=== PATIENT | female | born 1955 | race Caucasian/White ===

== ENCOUNTER 2016-12-24 14:48 | Emergency (ER) | payer OTHER ==
[~2016-12-24] VITALS: Ht 160 cm; Wt 50.0 kg
[~2016-12-24 14:48] MED LIST: ASPI81TA82 PO; ATOR20TA42 PO; LISI-363 PO; TYLE500T PO
[2016-12-24 14:52] VITALS: BP 108/57; PULSE 74; RESP 16; TEMP 98.2; O2SAT 97
[2016-12-24] MEDS ORDERED: SODIUM CHLOR 0.9% 1000 ML INJ 1,000 ML IV SCH (15:03)
[2016-12-24] MEDS ORDERED: SODIUM CHLOR 0.9% 1000 ML INJ 1,000 ML IV ONE (15:03)
--- NOTE | 2016-12-24 15:09 | PD ---
HPI Chief Complaint: GI Complaint Time Seen by Provider: 14:55 Travel History International Travel<30 days: No Contact w/Intl Traveler<30days: No Traveled to known affect area: No History of Present Illness HPI 61-year-old female presents for evaluation of diarrhea. Symptoms started 1 week ago. She reports several episodes of watery nonbloody stools on a daily basis. She took some Imodium 2 days ago which seemed to help decrease the diarrhea yesterday but today it has persisted which prompted evaluation. She endorses occasional epigastric discomfort which she relates is secondary to her GERD. She denies any other new abdominal pain. She endorses occasional nausea. Denies vomiting, fevers or chills, dysuria, recent antibiotic use. History of diverticulosis and diverticulitis episodes in the past, she denies any or quadrant abdominal pain. She primarily came in today because she felt like she might be getting dehydrated. She has been having some lightheadedness. She has been drinking [id number] Pedialyte. Her primary care physician is Dr. Campbell. No other complaints. PFSH Past Medical History Anxiety: No Depression: No Cancer: No Cardiovascular Problems: Yes High Cholesterol: Yes Diabetes: No Diminished Hearing: No Diverticulitis: Yes Endocrine: Yes Gastrointestinal Disorders: Yes (DIVERTICULITIS) GERD: Yes Genitourinary: No Hiatal Hernia: Yes Hypertension: Yes Immune Disorder: No Implanted Vascular Access Dvce: No Musculoskeletal: No Neurologic: No Psychiatric: No Reproductive: No Respiratory: No Thyroid Disease: Yes (L THYROIDECTOMY) : 1 Para: 1 Past Surgical History Abdominal Surgery: Yes (GALLBLADDER) Cholecystectomy: Yes Endocrine Surgery: Yes (THYROID TUMOR REMOVED) Gynecologic Surgery: Yes (HYSTERECTOMY) Hysterectomy: Yes Other Surgery: Yes Social History Alcohol Use: Yes (3 DRINKS PER DAY) Tobacco Use: Yes (1/2 ppd) Substance Use: No Allergies-Medications (Allergen,Severity, Reaction): Coded Allergies: Contrast Media (Verified Allergy, Severe, hives, 04/16/16) Codeine (Verified Adverse Reaction, Mild, NAUSEA & VOMITING, 04/16/16) Reported Meds & Prescriptions Reported Meds & Active Scripts Active Lomotil (Diphenoxylate-Atropine) 2.5-0.025 Mg Tab 2 Tab PO Q6H PRN Acetaminophen 500 Mg Tab 500 Mg PO Q6HR PRN Reported Lisinopril 20 mg (Lisinopril) 20 Mg Tab 1 Tab PO DAILY Aspir-81 (Aspirin) 81 Mg Tab 81 Mg PO DAILY Lipitor (Atorvastatin Calcium) 20 Mg Tab 20 Mg PO HS Review of Systems Except as stated in HPI: all other systems reviewed are Neg Physical Exam Narrative GENERAL: Well-developed well-nourished female in no acute distress SKIN: Warm and dry. HEAD: Atraumatic. Normocephalic. EYES: Pupils equal and round. No scleral icterus. No injection or drainage. ENT: No nasal bleeding or discharge. Mucous membranes pink and moist. NECK: Trachea midline. No JVD. CARDIOVASCULAR: Regular rate and rhythm. No murmur appreciated. RESPIRATORY: No accessory muscle use. Clear to auscultation. Breath sounds equal bilaterally. GASTROINTESTINAL: Abdomen soft, non-tender, nondistended. Hepatic and splenic margins not palpable. MUSCULOSKELETAL: No obvious deformities. No edema NEUROLOGICAL: Awake and alert. No obvious cranial nerve deficits. Motor grossly within normal limits. Normal speech. Data Data Last Documented VS Vital Signs Date Time Temp Pulse Resp B/P Pulse Ox O2 Delivery O2 Flow Rate FiO2 12/24/16 15:00 18 12/24/16 14:52 98.2 74 108/57 97 Orders Complete Blood Count With Diff (12/24/16 15:03) Comprehensive Metabolic Panel (12/24/16 15:03) Ondansetron Inj (Zofran Inj) (12/24/16 15:15) Sodium Chlor 0.9% 1000 Ml Inj (Ns 1000 M (12/24/16 15:03) Sodium Chlor 0.9% 1000 Ml Inj (Ns 1000 M (12/24/16 15:03) Magnesium (Mg) (12/24/16 15:03) Labs Laboratory Tests Test 12/24/16 13:14 White Blood Count 7.8 TH/MM3 Red Blood Count 4.17 MIL/MM3 Hemoglobin 13.8 GM/DL Hematocrit 41.4 % Mean Corpuscular Volume 99.3 FL Mean Corpuscular Hemoglobin 33.1 PG Mean Corpuscular Hemoglobin 33.3 % Concent Red Cell Distribution Width 13.4 % Platelet Count 157 TH/MM3 Mean Platelet Volume 10.0 FL Neutrophils (%) (Auto) 72.6 % Lymphocytes (%) (Auto) 13.1 % Monocytes (%) (Auto) 11.9 % Eosinophils (%) (Auto) 2.3 % Basophils (%) (Auto) 0.1 % Neutrophils # (Auto) 5.7 TH/MM3 Lymphocytes # (Auto) 1.0 TH/MM3 Monocytes # (Auto) 0.9 TH/MM3 Eosinophils # (Auto) 0.2 TH/MM3 Basophils # (Auto) 0.0 TH/MM3 CBC Comment DIFF FINAL Differential Comment Sodium Level 133 MEQ/L Potassium Level 3.8 MEQ/L Chloride Level 103 MEQ/L Carbon Dioxide Level 20.2 MEQ/L Anion Gap 10 MEQ/L Blood Urea Nitrogen 33 MG/DL Creatinine 0.94 MG/DL Estimat Glomerular Filtration 60 ML/MIN Rate Random Glucose 87 MG/DL Calcium Level 9.5 MG/DL Magnesium Level 2.1 MG/DL Total Bilirubin 0.3 MG/DL Aspartate Amino Transf 18 U/L (AST/SGOT) Alanine Aminotransferase 28 U/L (ALT/SGPT) Alkaline Phosphatase 128 U/L Total Protein 7.4 GM/DL Albumin 3.3 GM/DL [facility] Medical Decision Making Medical Screen Exam Complete: Yes Emergency Medical Condition: Yes Medical Record Reviewed: Yes Differential Diagnosis Gastroenteritis, electrolyte abnormality, dehydration, malabsorption, colitis, diverticulitis Narrative Course 61-year-old female here with one week of nonbloody diarrhea. Her abdomen is soft and nontender. She is not tachycardic. Her initial blood pressure was 108 /57 which is somewhat low for her. We'll check basic lab work and provide her IV fluids, Zofran. Upper is been reviewed. Her BUN is mildly elevated at 33, sodium 133. Lab work is otherwise unremarkable. Upon reexamination the patient feels improved. She'll be discharged with a short course of Lomotil to use over the next few days, return for worsening symptoms. Diagnosis Primary Impression: Diarrhea Qualified Code: R19.7 - Diarrhea, unspecified type Additional Instructions: Medication as needed. Stay well hydrated. Follow-up with primary care physician and return for any acutely new or worsening symptoms. Med/Other Pt SpecificInfo: Prescription(s) given Scripts Diphenoxylate-Atropine (Lomotil)2.5-0.025 Mg Tab2 Tab PO Q6H PRN (DIARRHEA) #15 TAB Ref 0 Prov:Kaci Flower MD 12/24/16 Disposition: 01 DISCHARGE HOME Condition: Stable Mono Shahid Dec 24, 2016 15:09
[2016-12-24] MEDS ORDERED: ONDANSETRON HCL 4 MG/2 ML VIAL IVP ONE (15:15)
[2016-12-24 15:38] LABS: AUTOMATED NEUTROPHIL # 5.7 TH/MM3 (1.8-7.7); BASOPHIL % 0.1 % (0.0-2.0); EOSINOPHIL # 0.2 TH/MM3 (0-0.4); EOSINOPHIL % 2.3 % (0.0-4.0); HEMATOCRIT 41.4 % (35.0-46.0); HEMO FLAGS DIFF FINAL; LYMPH % 13.1 % (9.0-44.0); MEAN CELL VOLUME 99.3 FL (80.0-100.0); MEAN CORPUSCULAR HEMOGLOBIN 33.1 PG (27.0-34.0); MEAN CORPUSCULAR HGB CONC 33.3 % (32.0-36.0); MONO % 11.9 % (0.0-8.0); NEUT % 72.6 % (16.0-70.0); PLATELET COUNT 157 TH/MM3 (150-450); RED BLOOD COUNT 4.17 MIL/MM3 (4.00-5.30); RED CELL DISTRIBUTION WIDTH 13.4 % (11.6-17.2); WHITE BLOOD COUNT 7.8 TH/MM3 (4.0-11.0)
[2016-12-24 15:51] LABS: ALT (GPT) 28 U/L (10-53); ANION GAP 10 MEQ/L (5-15); AST (GOT) 18 U/L (15-37); BICARBONATE 20.2 MEQ/L (21.0-32.0); BLOOD UREA NITROGEN 33 MG/DL (7-18); CHLORIDE 103 MEQ/L (98-107); GLOMERULAR FILTRATION RATE 60 ML/MIN (>89); MAGNESIUM 2.1 MG/DL (1.5-2.5); POTASSIUM 3.8 MEQ/L (3.5-5.1); SODIUM (NA) 133 MEQ/L (136-145)
[2016-12-24 15:54] LABS: ALKALINE PHOSPHATASE 128 U/L (45-117); TOTAL BILIRUBIN ADULT 0.3 MG/DL (0.2-1.0)
[2016-12-24] MEDS ORDERED: LOMO2.5T PO (16:06)
== END 2016-12-24 17:08 | disposition home or self-care (01) ==
LOC: NEPD 14:48
DX: R19.7 Diarrhea, unspecified (principal); R10.13 Epigastric pain; R11.0 Nausea; R42 Dizziness and giddiness; I10 Essential (primary) hypertension; E07.9 Disorder of thyroid, unspecified; E78.00 Pure hypercholesterolemia, unspecified; F17.200 Nicotine dependence, unspecified, uncomplicated; Z87.19 Personal history of other diseases of the digestive system; Z86.79 Personal history of other diseases of the circulatory system
CPT/HCPCS: 80053; 83735; 85025; 96374; 99284; J2405; J7030